=== PATIENT | female | born 1980 | race Caucasian/White ===

== ENCOUNTER 2018-03-06 10:03 | Emergency (ER) | payer OTHER ==
--- NOTE | 2018-03-06 10:35 | ERPHSYRPT ---
- History of Present Illness Time Seen by Provider: 03/06/18 10:30 Source: patient Exam Limitations: no limitations Patient Subjective Stated Complaint: cough, sore throat, headache, body aches Triage Nursing Assessment: Pt c/o of coughing, chest discomfort, headache, body aches, stuffy and runny nose for past 4 days, tachycardic, afebrile, lungs clear , denies any other issues at this time Physician History: The patient is a 38-year-old female complaining of a cough, mild sore throat, muscle aches, and intermittent fevers for 4 days. It began as chest tightness with a dry cough. The dry cough is now more of a wet cough. She does not know what her fever has been. Her daughter has also been sick with the same signs and symptoms before the patient became sick. She did not get an influenza vaccination this year. Her past medical history significant for high cholesterol, double mastectomy, complete oophorectomy, and hysterectomy. The patient's mother and grandmother and other females in her family have had breast cancer. The patient had a mastectomy and oophorectomy as prophylactic surgeries. Timing/Duration: day(s) (4), gradual onset, worse Cough Quality/Degree: moderate, dry cough Possible Cause: no prior episodes Modifying Factors: Improves With: nothing Associated Symptoms: fever, cough, sore throat Allergies/Adverse Reactions: No Known Drug Allergies Allergy (Verified 03/06/18 10:18) Home Medications: Amphet Asp/Amphet/D-Amphet [Dextroamp-Amphet ER 20 mg Cap] 20 mg PO DAILY [History] Ergocalciferol (Vitamin D2) [Vitamin D] 1 tab PO WEEKLY 03/06/18 [History] Estradiol 1 mg PO DAILY 03/06/18 [History] Estrogens,Conjugated [Premarin Vaginal Cream] 1 ea TOP DAILY 03/06/18 [History] Ondansetron [Ondansetron Odt] 8 mg SL UD PRN 03/06/18 [History] Rosuvastatin Calcium [Crestor] 20 mg PO DAILY 03/06/18 [History] Hx Influenza Vaccination/Date Given: No - Review of Systems Constitutional: Fever Eyes: No Symptoms Ears, Nose, & Throat: Nose Congestion, Sinus Drainage, Throat Pain Respiratory: Cough, No Wheezing Cardiac: No Chest Pain, No Edema, No Syncope Abdominal/Gastrointestinal: No Abdominal Pain, No Nausea, No Vomiting, No Diarrhea Genitourinary Symptoms: No Dysuria Musculoskeletal: No Back Pain, No Neck Pain Skin: No Rash Neurological: No Dizziness, No Focal Weakness, No Sensory Changes Psychological: No Symptoms Endocrine: No Symptoms Hematologic/Lymphatic: No Symptoms Immunological/Allergic: No Symptoms All Other Systems: Reviewed and Negative - Past Medical History Pertinent Past Medical History: Yes Cardiac History: High Cholesterol - Past Surgical History Past Surgical History: Yes Gastrointestinal: Appendectomy Musculoskeletal: Orthopedic Surgery Female Surgical History: Hysterectomy, Section, Mastectomy Other Surgical History: shoulder - Social History Smoking Status: Former smoker Exposure to second hand smoke: No Drug Use: none Patient Lives Alone: No - Female History Hx Now: No (hysterectomy) - Nursing Vital Signs Nursing Vital Signs: Initial Vital Signs Temperature 98.6 F 03/06/18 10:08 Pulse Rate 110 H 03/06/18 10:08 Blood Pressure 133/92 03/06/18 10:08 O2 Sat by Pulse Oximetry 98 03/06/18 10:08 Pain Scale Pain Intensity 3 - Physical Exam General Appearance: no apparent distress, alert Eye Exam: PERRL/EOMI, eyes nml inspection Ears, Nose, Throat Exam: TMs normal, pharyngeal erythema, No tonsillar exudate Neck Exam: normal inspection, non-tender, supple, full range of motion Respiratory Exam: normal breath sounds, lungs clear, No respiratory distress Cardiovascular Exam: regular rate/rhythm, normal heart sounds Gastrointestinal/Abdomen Exam: soft, No tenderness Pelvic Exam: not done Rectal Exam: not done Back Exam: normal inspection, No CVA tenderness, No vertebral tenderness Extremity Exam: normal inspection, normal range of motion Neurologic Exam: alert, oriented x 3, cooperative, normal mood/affect, sensation nml, No motor deficits Skin Exam: normal color, warm, dry, No rash Lymphatic Exam: No adenopathy SpO2 Interpretation: normal SpO2: 98 Oxygen Delivery: Room Air - Radiology Exams Chest X-ray Interpretation: Interpreted by me, Negative Ordered Tests: Active Orders 24 hr Category Date Time Status CHEST 2 VIEWS (PA AND LAT) Stat Exams 03/06/18 10:45 Completed Lab/Rad Data: Laboratory Results 03/06/18 Range/Units 10:36 Influenza Type A Ag NEGATIVE (NEGATIVE) Influenza Type B Ag NEGATIVE (NEGATIVE) RSV (PCR) NEGATIVE (Negative) Group A Strep Antibody NEGATIVE (NEGATIVE) - Progress Progress: unchanged Air Movement: good Blood Culture(s) Obtained: No Antibiotics given: No Counseled pt/family regarding: diagnosis, rad results - Departure Time of Disposition: 11:56 Departure Disposition: Home Clinical Impression: Bronchitis Condition: Stable Critical Care Time: No Referrals: DONTE ZUNIGA CONSULTING SERVICES MANAGER [Primary Care Provider] - Additional Instructions: You have bronchitis. The x-ray of your chest was negative. The lab test was negative for strep throat, influenza, and RSV. You were given Toradol 60 mg by IM in the ER. Take azithromycin 500 mg today followed by 250 mg daily for days 2 through 5. Take prednisone 40 mg daily for 5 days. Follow-up with your primary medical doctor as needed. Prescriptions: Azithromycin 250 mg [Zithromax 250 MG TABLET] 250 mg PO ZPACK #6 tablet Prednisone 20 mg [Deltasone 20 mg] 2 tab PO DAILY #10 tablet
--- NOTE | 2018-03-06 11:25 | XRAY ---
Indication: Fever and cough. Comparison: None PA/lateral chest demonstrates normal heart, lungs, and bony thorax with incidental left axilla surgical clips.
[2018-03-06 11:39] LABS: INFLUENZA A NEGATIVE (NEGATIVE); INFLUENZA B NEGATIVE (NEGATIVE); RESPIRATORY SYNCTIAL VIRUS NEGATIVE (Negative)
[2018-03-06] MEDS ORDERED: TORAdol 30 mg Injection IM ONE (11:56)
[2018-03-06] MEDS ORDERED: TORAdol 30 mg Injection ONE (11:59)
[2018-03-06 12:07] VITALS: BP 107/75; PULSE 100; O2SAT 97
== END 2018-03-06 12:42 | disposition home or self-care (01) ==
LOC: ED 10:03
DX: J40 Bronchitis, not specified as acute or chronic (principal); Z79.899 Other long term (current) drug therapy
CPT/HCPCS: 71046; 87631; 87651; 96372; 99284; J1885

== ENCOUNTER 2021-09-25 11:54 | Emergency (ER) | payer BC ==
[2021-09-25 12:35] VITALS: BP 132/90; PULSE 102; O2SAT 95
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
== END 2021-09-25 13:32 | disposition home or self-care (01) ==
LOC: ED 11:54
DX: S46.912A Strain of unspecified muscle, fascia and tendon at shoulder and upper arm level, left arm, initial encounter (principal); V59.40XA Driver of pick-up truck or van injured in collision with unspecified motor vehicles in traffic accident, initial encounter; M25.512 Pain in left shoulder; M25.522 Pain in left elbow; E78.5 Hyperlipidemia, unspecified; Z79.899 Other long term (current) drug therapy; Z28.310 Unvaccinated for COVID-19
CPT/HCPCS: 73030; 73080; 99282